=== PATIENT | male | born 1930 | race Caucasian/White ===

== ENCOUNTER 2018-02-25 09:31 | Emergency (ER) | payer MEDICARE, OTHER ==
[~2018-02-25] VITALS: Ht 177.8 cm; Wt 95.2 kg
[~2018-02-25 09:31] MED LIST: ACEDIPPM PO; ALBU.083IS IH; ASPI325EC PO; ASPI81EC; ASPI81EC PO; ATOR40TA; ATOR40TA PO; AZIT250 PO; CLOP75 PO; DIAZEPAM; FLUT.05NI; ISOMON30 PO; METO50 PO; NAPR375; OMEP20ER; SPIRIVA; TAMS.4ER; TAMS.4ER PO; TEMA30 PO; TIOT18 IH; ZOLP12.5; [UNRECOGNIZED DRUG - OTHER]
[2018-02-25] MEDS ORDERED: TRAZ50 (10:15)
[2018-02-25] MEDS ORDERED: METF500C (10:15)
[2018-02-25 11:35] LABS: Source, Urine Clean Catch
[2018-02-25 11:39] LABS: Bilirubin, Urine Neg (Neg); Blood, Urine 1+ (Neg); Glucose Qualitative, Urine 3+ (Neg); Ketones, Urine Neg (Neg); Leukocyte Esterase, Urine Neg (Neg); Nitrite, Urine Neg (Neg); Protein, Urine 1+ (Neg); Specific Gravity, Urine 1.015 (1.003-1.022); Urobilinogen, Urine NORM (Normal); pH, Urine 6.5 (5.0-8.0)
[2018-02-25 12:02] LABS: Appearance, Urine Clear (Clear); Color, Urine Pale Yellow (P-Yellow)
[2018-02-25 12:03] LABS: Bacteria Not Seen /hpf; Red Blood Cells, Urine Rare /hpf (0-2); Squamous Epithelial Cells Not Seen /hpf (Few); White Blood Cells, Urine Not Seen /hpf (0-5)
[2018-02-25] MEDS ORDERED: LEVFLO500 PO (13:01)
== END 2018-02-25 13:14 | disposition home or self-care (01) ==
LOC: ER 09:31
PROVIDERS: Physician Assistant
DX: N45.1 Epididymitis (principal); I25.2 Old myocardial infarction; J44.9 Chronic obstructive pulmonary disease, unspecified; Z79.82 Long term (current) use of aspirin; Z79.899 Other long term (current) drug therapy; Z95.5 Presence of coronary angioplasty implant and graft
CPT/HCPCS: 76870; 81001; 93005; 93010; 99284

== ENCOUNTER → 2020-09-17 | Outpatient (CLI) | payer MEDICARE, OTHER ==
[~2020-09-17] MED LIST changes: +LEVFLO500 PO; +METF500C; +TRAZ50
[2020-09-18 12:22] LABS: Source, Urine Clean Catch
[2020-09-18 13:18] LABS: Bilirubin, Urine Neg (Neg); Blood, Urine Neg (Neg); Glucose Qualitative, Urine 3+ (Neg); Ketones, Urine Neg (Neg); Leukocyte Esterase, Urine Neg (Neg); Nitrite, Urine Neg (Neg); Protein, Urine 2+ (Neg); Specific Gravity, Urine 1.015 (1.003-1.022); Urobilinogen, Urine NORM (Normal)
[2020-09-18 13:35] LABS: Appearance, Urine Clear (Clear); Color, Urine Yellow (P-Yellow)
[2020-09-18 13:39] LABS: Bacteria Few /hpf; Calcium Oxalate Crystals Mod /hpf; Red Blood Cells, Urine 0-2 /hpf (0-2); Squamous Epithelial Cells Rare /hpf (Few); White Blood Cells, Urine 0-2 /hpf (0-5)
== END | disposition home or self-care (01) ==
LOC: LAB SHORT 17:00
PROVIDERS: Family Medicine
DX: N39.0 Urinary tract infection, site not specified (principal)
CPT/HCPCS: 81001

== ENCOUNTER → 2020-09-26 | Outpatient (CLI) | payer MEDICARE, OTHER ==
[2020-09-26 12:31] LABS: BASOPHILS ABSOLUTE AUTO 0.08 K/mm3 (0.00-0.23); BASOPHILS PERCENT AUTO 1 % (0-2); EOSINOPHILS ABSOLUTE AUTO 0.23 K/mm3 (0.00-0.68); EOSINOPHILS PERCENT AUTO 2 % (0-6); Hematocrit 40.2 % (37.0-53.0); Hemoglobin 12.8 g/dL (13.5-17.5); IMMATURE GRAN ABSOLUTE AUTO 0.06 K/mm3 (0.00-0.10); IMMATURE GRAN PERCENT AUTO 1 % (0-1); LYMPHOCYTES ABSOLUTE AUTO 3.36 K/mm3 (0.84-5.20); LYMPHOCYTES PERCENT AUTO 30 % (21-46); MONOCYTES ABSOLUTE AUTO 0.84 K/mm3 (0.16-1.47); MONOCYTES PERCENT AUTO 8 % (4-13); Mean Corpuscular HGB 31.8 pg (26.0-34.0); Mean Corpuscular HGB Conc 31.8 g/dL (31.5-36.5); Mean Corpuscular Volume 100 fL (80-100); Mean Platelet Volume 10.7 fL (9.1-12.4); NEUTROPHILS ABSOLUTE AUTO 6.68 K/mm3 (1.96-9.15); NEUTROPHILS PERCENT AUTO 59 % (41-73); Platelet Count 221 K/mm3 (150-400); RDW Coefficient Variation 14.1 % (11.7-14.2); RDW Standard Deviation 51.8 fL (35.1-46.3); Red Blood Cell Count 4.03 M/mm3 (4.30-5.90); White Blood Cell Count 11.25 K/mm3 (4.00-11.30)
[2020-09-26 12:51] LABS: LDL/HDL RATIO 1.2; Very Low Density Lipoprot Chol 20 mg/dL (6-32)
[2020-09-26 12:52] LABS: Alanine Aminotransfer (ALT/SGP 13 U/L (12-78); Albumin, Blood 3.1 g/dL (3.4-5.0); Albumin/Globulin Ratio 0.7 (0.8-1.8); Alk Phos 96 U/L (50-136); Anion Gap 4 mmol/L (6-16); Aspartate Aminotrans (AST/SGOT 15 U/L (12-37); Bilirubin, Total 0.3 mg/dL (0.1-1.0); Blood Urea Nitrogen 24 mg/dL (8-24); CHOL/HDL RATIO 2.6; CO2, Blood 29 mmol/L (21-32); Calcium, Blood 8.7 mg/dL (8.5-10.1); Chloride, Blood 104 mmol/L (98-108); Cholesterol 138 mg/dL (50-200); Creatinine, Blood 0.96 mg/dL (0.60-1.20); Globulin, Blood 4.3 g/dL (2.2-4.0); Glomerular Filtration Rate >60 (60-); Glucose, Blood 209 mg/dL (70-99); HDL Cholesterol 53 mg/dL (>39); Low Density Lipoprotein Chol 65 mg/dL (0-110); Potassium, Blood 4.2 mmol/L (3.5-5.5); Sodium, Blood 137 mmol/L (136-145); Total Protein, Blood 7.4 g/dL (6.4-8.2); Triglycerides 102 mg/dL (30-160)
[2020-09-26 14:48] LABS: Microalb/Creat Ratio UR, Rand 66.667 mg/g (0.000-30.000)
== END | disposition home or self-care (01) ==
LOC: LAB SHORT 08:15 → LAB 08:15
PROVIDERS: Family Medicine
DX: E11.59 Type 2 diabetes mellitus with other circulatory complications (principal)
CPT/HCPCS: 80053; 80061; 82043; 82570; 83036; 84443; 85025

== ENCOUNTER → 2021-03-07 | Outpatient (CLI) | payer MEDICARE, OTHER ==
[2021-03-07 12:41] LABS: Source, Urine Clean Catch
[2021-03-07 13:38] LABS: Appearance, Urine Clear (Clear); Bilirubin, Urine Neg (Neg); Blood, Urine Neg (Neg); Color, Urine Yellow (P-Yellow); Glucose Qualitative, Urine 4+ (Neg); Ketones, Urine Neg (Neg); Leukocyte Esterase, Urine Neg (Neg); Nitrite, Urine Neg (Neg); Protein, Urine Neg (Neg); Specific Gravity, Urine 1.015 (1.003-1.022); Urobilinogen, Urine NORM (Normal); pH, Urine 6.5 (5.0-8.0)
== END | disposition home or self-care (01) ==
LOC: LAB 12:40 → LAB SHORT 12:40
PROVIDERS: Family Medicine
DX: N39.0 Urinary tract infection, site not specified (principal)
CPT/HCPCS: 81003

== ENCOUNTER → 2021-03-15 | Outpatient (CLI) | payer MEDICARE, OTHER ==
[2021-03-15 14:21] LABS: Source, Urine Clean Catch
[2021-03-15 15:03] LABS: Appearance, Urine Clear (Clear); Bilirubin, Urine Neg (Neg); Blood, Urine Neg (Neg); Color, Urine Yellow (P-Yellow); Glucose Qualitative, Urine 4+ (Neg); Ketones, Urine Neg (Neg); Leukocyte Esterase, Urine Neg (Neg); Nitrite, Urine Neg (Neg); Protein, Urine 1+ (Neg); Urobilinogen, Urine NORM (Normal)
== END ==
LOC: LAB SHORT 11:42 → LAB 11:42
PROVIDERS: Family Medicine
DX: N39.0 Urinary tract infection, site not specified (principal)
CPT/HCPCS: 81003

== ENCOUNTER 2021-10-31 02:04 | Emergency (ER) | payer MEDICARE, OTHER ==
[~2021-10-31] VITALS: Ht 177.8 cm; Wt 102.1 kg
[2021-10-31 02:56] LABS: BASOPHILS ABSOLUTE AUTO 0.05 K/mm3 (0.00-0.23); BASOPHILS PERCENT AUTO 0 % (0-2); EOSINOPHILS ABSOLUTE AUTO 0.12 K/mm3 (0.00-0.68); EOSINOPHILS PERCENT AUTO 1 % (0-6); IMMATURE GRAN PERCENT AUTO 1 % (0-1); LYMPHOCYTES ABSOLUTE AUTO 2.19 K/mm3 (0.84-5.20); LYMPHOCYTES PERCENT AUTO 14 % (21-46); MONOCYTES PERCENT AUTO 9 % (4-13); Mean Corpuscular HGB 33.3 pg (26.0-34.0); Mean Corpuscular HGB Conc 33.3 g/dL (31.5-36.5); Mean Corpuscular Volume 100 fL (80-100); Mean Platelet Volume 10.7 fL (9.1-12.4); NEUTROPHILS PERCENT AUTO 75 % (41-73); NRBC ABSOLUTE 0.03 K/mm3 (0.00-0.02); NRBC Auto 0.2 /100 WBC (0.0-0.2); Platelet Count 219 K/mm3 (150-400); RDW Coefficient Variation 15.7 % (11.7-14.2); RDW Standard Deviation 56.3 fL (35.1-46.3); White Blood Cell Count 15.46 K/mm3 (4.00-11.30)
[2021-10-31 03:22] LABS: Alanine Aminotransfer (ALT/SGP 20 U/L (12-78); Albumin, Blood 3.1 g/dL (3.4-5.0); Albumin/Globulin Ratio 0.7 (0.8-1.8); Alk Phos 46 U/L (50-136); Anion Gap 5 mmol/L (6-16); Aspartate Aminotrans (AST/SGOT 41 U/L (12-37); Bilirubin, Total 0.7 mg/dL (0.1-1.0); Blood Urea Nitrogen 22 mg/dL (8-24); Bun/Creatinine Ratio 19.8 (12.0-20.0); CO2, Blood 27 mmol/L (21-32); Calcium, Blood 9.1 mg/dL (8.5-10.1); Chloride, Blood 99 mmol/L (98-108); Creatinine, Blood 1.11 mg/dL (0.60-1.20); Globulin, Blood 4.7 g/dL (2.2-4.0); Glomerular Filtration Rate >60 (60-); Glucose, Blood 123 mg/dL (70-99); Potassium, Blood 5.5 mmol/L (3.5-5.5); Sodium, Blood 131 mmol/L (136-145); Total Protein, Blood 7.8 g/dL (6.4-8.2)
[2021-10-31 04:50] LABS: Source, Urine Voided
[2021-10-31 04:59] LABS: Bilirubin, Urine Neg (Neg); Blood, Urine Neg (Neg); Glucose Qualitative, Urine Neg (Neg); Ketones, Urine Neg (Neg); Leukocyte Esterase, Urine Neg (Neg); Nitrite, Urine Neg (Neg); Protein, Urine 2+ (Neg); Urobilinogen, Urine NORM (Normal)
[2021-10-31 05:07] LABS: Appearance, Urine Clear (Clear); Color, Urine Yellow (P-Yellow)
[2021-10-31 05:08] LABS: Bacteria Not Seen /hpf; Mucus Mod (0-Heavy); Red Blood Cells, Urine 0-2 /hpf (0-2); Squamous Epithelial Cells Not Seen /hpf (Few); White Blood Cells, Urine 0-2 /hpf (0-5)
[2021-10-31] MEDS ORDERED: LIDO700A20 TOP (05:20)
[2021-10-31] MEDS ORDERED: HYDROCODONE-AC1 EA10 PO (05:20)
== END 2021-10-31 05:39 ==
LOC: ER 02:04
PROVIDERS: Emergency Medicine
DX: M54.50 Low back pain, unspecified (principal); G89.29 Other chronic pain; D72.829 Elevated white blood cell count, unspecified; M48.56XD Collapsed vertebra, not elsewhere classified, lumbar region, subsequent encounter for fracture with routine healing; I25.2 Old myocardial infarction; I25.10 Atherosclerotic heart disease of native coronary artery without angina pectoris; I10 Essential (primary) hypertension; K21.9 Gastro-esophageal reflux disease without esophagitis; Z79.899 Other long term (current) drug therapy
CPT/HCPCS: 51701; 72131; 74176; 80053; 81001; 83605; 85025; 99284-25; A9270

== ENCOUNTER 2021-12-04 02:46 | Observation (INO) | payer OTHER, MEDICARE ==
[~2021-12-04] VITALS: Ht 175.3 cm; Wt 85.0 kg
[~2021-12-04 02:46] MED LIST changes: +FENO54 PO; +GLIP10 PO; +HYDROCODONE-AC1 EA10 PO; +LIDO700A20 TOP; +LISI5 PO; -METF500C; +METF500C PO
[2021-12-04 03:08] LABS: BASOPHILS ABSOLUTE AUTO 0.04 K/mm3 (0.00-0.23); BASOPHILS PERCENT AUTO 0 % (0-2); EOSINOPHILS ABSOLUTE AUTO 0.06 K/mm3 (0.00-0.68); EOSINOPHILS PERCENT AUTO 1 % (0-6); Hematocrit 35.3 % (37.0-53.0); Hemoglobin 11.4 g/dL (13.5-17.5); IMMATURE GRAN ABSOLUTE AUTO 0.06 K/mm3 (0.00-0.10); IMMATURE GRAN PERCENT AUTO 1 % (0-1); LYMPHOCYTES ABSOLUTE AUTO 2.02 K/mm3 (0.84-5.20); LYMPHOCYTES PERCENT AUTO 18 % (21-46); MONOCYTES ABSOLUTE AUTO 0.83 K/mm3 (0.16-1.47); MONOCYTES PERCENT AUTO 7 % (4-13); Mean Corpuscular HGB 32.9 pg (26.0-34.0); Mean Corpuscular HGB Conc 32.3 g/dL (31.5-36.5); Mean Corpuscular Volume 102 fL (80-100); Mean Platelet Volume 10.5 fL (9.1-12.4); NEUTROPHILS ABSOLUTE AUTO 8.16 K/mm3 (1.96-9.15); NEUTROPHILS PERCENT AUTO 73 % (41-73); Platelet Count 232 K/mm3 (150-400); RDW Coefficient Variation 15.9 % (11.7-14.2); RDW Standard Deviation 59.2 fL (35.1-46.3); Red Blood Cell Count 3.47 M/mm3 (4.30-5.90); White Blood Cell Count 11.17 K/mm3 (4.00-11.30)
[2021-12-04 03:47] LABS: Albumin, Blood 3.1 g/dL (3.4-5.0); Albumin/Globulin Ratio 0.8 (0.8-1.8); Bilirubin, Total 0.4 mg/dL (0.1-1.0); Bun/Creatinine Ratio 15.1 (12.0-20.0); Calcium, Blood 8.9 mg/dL (8.5-10.1); Creatinine, Blood 1.19 mg/dL (0.60-1.20); Globulin, Blood 4.1 g/dL (2.2-4.0); Potassium, Blood 4.1 mmol/L (3.5-5.5); Total Protein, Blood 7.2 g/dL (6.4-8.2)
--- NOTE | 2021-12-04 08:44 | NUR ---
ADMIT NOTE- RECIEVED TELEPHONE REPORT FROM ED RN. PER REPORT THE PT HAD BEEN IN THE BATHROOM THERE FOR QUITE A WHILE, WITH NO RESULTS. PT ARIVED ON MEDICAL FLOOR SHORTLY AFTER REPORT WAS COMPLETED AND THE PT WOULD NOT ALOW VITALS OR ASSESSMENT HE NEEDED TO USE THE RESTROM. BG CHECKS ORDERED Q2 POC BG COMPLETED WHILE PT WAS INB THE BATHROOM. PT ATTEMPTED TO LEAVE THE BATHROOM TO ALLOW STAFF TO DO ASSESSMENT AND VITALS BUT SOON HE SAT ON THE BED STATED "NO, I CANT DO IT. I HAVE TO GO BACK IN THERE" CALLED DR SPENCE PT SEEMS MORE IN NEED OF AN ENEMA RATHER THAN THE MIRALAX AND SENNA THAT ARE ORDERED RECIEVED A OT ORDER FOR A NOW ENEMA. WHILE WAITING FOR THE VERIFICATION OF THE ORDER PT PASSED AN EXTRA LARGE HARD FORMED STOOL LIGHT BROWN IN COLOR. ENEMA WAS NOT NEEDED AT THIS POINT. MIRALAX AND SENNA WILL BE GIVEN WITH AM MEDS TO PREVENT FUTURE PROBLEMS. PT MED REC WAS COMPLETED BY THE ED RN.
[2021-12-04] MEDS ORDERED: ROSU10TA PO (12:11)
[2021-12-04] MEDS ORDERED: SENN187 PO (15:25)
[2021-12-04] MEDS ORDERED: MIRALAX17 GM PO (15:25)
[2021-12-04] MEDS ORDERED: Norco 7.5-3251 EACH PO (15:26)
[2021-12-04] MEDS ORDERED: METF500 PO (15:41)
--- NOTE | 2021-12-04 18:33 | NUR ---
DISCHARGE NOTE- PT DISCHARGED BACK TO [facility] HE [facility]ID[facility]. IV DC'D AT THE TIME OF DISCHARGE. PT WAS TAKEN VIA WC TRANSPORT BACK TO HIS FACILITY, NO S&S OF DISTRESS AT THE TIME OF DISCHARGE
--- NOTE | 2021-12-05 07:52 | NUR ---
Per Dr. Sharath Oliveira discharge appropriate. Patient and son Cj do not oppose discharge. Contacted Nicole Burks prior to discharge to notify of discharge. Updated notes emailed to RN Radha Berry. Nicole Burks location: [address] Room [address] [place] [address] Date of discharge: 12/04/2021 Date of admission: 12/04/2021 [facility] Ordered: N/A Follow-ups needed: [facility] will contact Nicole Burks to schedule hospital follow-up visit if needed. Reinforced need to schedule and attend appointment with option of telehealth if needed. Provider/PCP: Dr. Alphonso Daniel When: within one week of discharge Specialty: N/A Confirmed numbers: Humberto Burks [phone] (may have to leave message) Milad Corona: [phone]. Comment: Patient is moving to [facility] on 12/17/21.
[2022-01-16] MEDS ORDERED: MULTI-VITAMIN1 EAC2 PO (02:39)
== END 2021-12-04 17:46 | disposition home health service (06) ==
LOC: ER 02:46 → MEDS 02:47
PROVIDERS: Emergency Medicine; ADMIT Family Medicine
DX: E16.0 Drug-induced hypoglycemia without coma (principal); T38.3X5A Adverse effect of insulin and oral hypoglycemic [antidiabetic] drugs, initial encounter; K59.00 Constipation, unspecified; I25.2 Old myocardial infarction; I10 Essential (primary) hypertension; I73.9 Peripheral vascular disease, unspecified; J44.9 Chronic obstructive pulmonary disease, unspecified; K21.9 Gastro-esophageal reflux disease without esophagitis; E78.5 Hyperlipidemia, unspecified; M19.90 Unspecified osteoarthritis, unspecified site; N40.0 Benign prostatic hyperplasia without lower urinary tract symptoms; Z95.1 Presence of aortocoronary bypass graft; Z95.5 Presence of coronary angioplasty implant and graft; Z87.81 Personal history of (healed) traumatic fracture
CPT/HCPCS: 36415; 80053; 82947; 85025; 93005; 93010; 96372; 96374; 96375; 99285-25; A9270; G0378; J2310; J2354; J7799